=== PATIENT | male | born 1995 | race Caucasian/White ===

== ENCOUNTER 2020-03-03 17:08 | Outpatient (REF) | payer OTHER, SELFPAY | END 2020-03-03 17:09 | disposition home or self-care (01) | LOC: HO.LAB 17:08 | PROVIDERS: Visit Provider Internal Medicine | DX: Z20.828 Contact with and (suspected) exposure to other viral communicable diseases (principal) | CPT/HCPCS: C9803; U0003 ==

== ENCOUNTER 2020-03-22 16:51 | Outpatient (REF) | payer OTHER, SELFPAY | END 2020-03-22 16:52 | disposition home or self-care (01) | LOC: HO.LAB 16:51 | PROVIDERS: PCP Internal Medicine; Visit Provider Internal Medicine | DX: Z20.828 Contact with and (suspected) exposure to other viral communicable diseases (principal) | CPT/HCPCS: 36415; C9803; U0003 ==

== ENCOUNTER 2022-07-16 09:52 | Outpatient (REF) | payer OTHER, SELFPAY ==
[2022-07-16 10:09] LABS: MANUAL DIFF FLAG NO
[2022-07-16 10:50] LABS: Basophils Percent Auto 0.4 % (0-2); Eosinophils Absolute Auto 0.1 X10*3/uL (0.0-0.4); Eosinophils Percent Auto 1.3 % (0-4); Hematocrit 41.3 % (42.0-52.0); Hemoglobin 13.6 g/dl (14.0-18.0); Imm Gran Abs Auto 0.02 X10*3/uL (0.00-0.03); Imm Gran Pct Auto 0.3 % (0.0-0.4); Lymphocytes Absolute Auto 1.6 X10*3/uL (1.2-4.9); Mean Corpuscular HGB Conc 32.9 g/dl (31.0-36.0); Mean Corpuscular Hemoglobin 30.6 pg (27.0-33.0); Mean Corpuscular Volume 92.8 fL (80.0-98.0); Mean Platelet Volume 10.8 fL (9.4-12.4); Monocytes Absolute Auto 0.6 X10*3/uL (0.1-1.2); Monocytes Percent Auto 8.9 % (2-11); Neutrophils Absolute Auto 4.5 x10*3/uL (2.0-8.3); Neutrophils Percent Auto 66.1 % (45-73); Platelet Count 182 X10*3/uL (160-400); Red Blood Count 4.45 X10*6/uL (4.60-5.80); Red Cell Distribution Width 11.6 % (11.0-16.0); White Blood Count 6.7 X10*3/uL (4.8-10.8)
[2022-07-16 11:13] LABS: Alanine Aminotransferase 37 U/L (0-40); Albumin Level 4.3 g/dL (3.5-5.0); Alkaline Phosphatase 54 U/L (39-117); Anion Gap 12 (12-20); Aspartate Amino Transferase 35 U/L (5-37); Bilirubin Total 1.3 mg/dL (0.0-1.0); Blood Urea Nitrogen 17 mg/dL (9-16); Calcium 9.3 mg/dL (8.4-10.2); Carbon Dioxide 26 mmol/L (22-29); Chloride 105 mmol/L (96-108); Cholesterol 145 mg/dL; Estimated Glomerular Filt Rate > 60; Glucose Random 93 mg/dL (60-115); HDL Cholesterol 50 mg/dL; LDL Cholesterol Calculated 81 mg/dl; Potassium 4.2 mmol/L (3.3-5.1); Sodium 139 mmol/L (135-145); Total Protein 6.8 g/dL (6.5-8.0); Triglycerides 70 mg/dL
[2022-07-16 14:15] LABS: CT PCR NOT DETECTED (Not Detect.); NG PCR NOT DETECTED (Not Detect.)
[2022-07-17 04:34] LABS: HIV AB/AG Nonreactive (Nonreactive); HIV Num 1 0.08 S/CO (0.00-0.99)
== END 2022-07-16 09:53 | disposition home or self-care (01) ==
LOC: HO.LAB 09:52
PROVIDERS: PCP Internal Medicine; Visit Provider Internal Medicine
DX: Z00.00 Encounter for general adult medical examination without abnormal findings (principal); Z11.4 Encounter for screening for human immunodeficiency virus [HIV]; M54.50 Low back pain, unspecified; Z20.2 Contact with and (suspected) exposure to infections with a predominantly sexual mode of transmission
CPT/HCPCS: 0353U; 80053; 80061; 85025; 87389

== ENCOUNTER 2024-03-04 16:21 | Emergency (ER) | payer SELFPAY ==
[2024-03-04 16:27] VITALS: BP 116/54; PULSE 78; RESP 18; TEMP 36.4; O2SAT 98; BMI 22.4
--- NOTE | 2024-03-04 17:27 | ED.UPPEXIN ---
HPI - Extremity Injury (Upper) General Chief Complaint: Skin/Abscess/Foreign Body Stated Complaint: Knots/Discomfort on the left elbow Time Seen by Provider: 03/04/24 17:24 Source: patient Mode of arrival: ambulatory Limitations: no limitations History of Present Illness ED Provider: Ariel Redman PA-C HPI narrative: 28 yo male presenting for evaluation of a growing mass on his left elbow. he 1st noticed it 6-7 months ago but it was very small. it has been getting bigger lately. he has pain when he touches it. he is able to fully range the elbow and denies any skin changes, warmth, numbness, tingling or weakness. no injury to the elbow MD complaint: injury to: left and elbow Onset (ago): month(s) Other injuries: none Handedness: right Place: home Severity: mild Severity scale (1-10): 2 Relieving factors: rest Exacerbating factors: other (palpation) Associated symptoms: denies other symptoms Related Data Allergies Allergy/AdvReac Type Severity Reaction Status Date / Time No Known Allergies Allergy Verified 03/04/24 16:30 [No Known Allergies*] Review of Systems Review of Systems: Yes all other systems are reviewed and are negative Physical Exam Vital Signs: Vital Signs: Last Vital Signs Temp 97.6 F 03/04/24 16:27 Pulse 78 03/04/24 16:27 Resp 18 03/04/24 16:27 BP 116/54 L 03/04/24 16:27 Pulse Ox 98 03/04/24 16:27 O2 Del Method Room Air 03/04/24 16:27 BMI result Body Mass Index 22.4 Appearance: Alert. Oriented X3. No acute distress. HEENT: normal inspection CVS: Normal heart rate and rhythm. Pulses normal. Respiratory: No respiratory distress. Skin: Skin warm and dry. Normal skin color. Normal skin turgor. No rashes. Extremities: small, approx 3cm round, soft, fully mobile and minimally tender, superficial mass on the lateral left elbow. FROM of the elbow. no erythema, no tenderness of the condyles. Neuro: Oriented X 3. No motor deficit. No sensory deficit. Medical Decision Making Medical Decision Making [facility] Narrative: 28 yo male presenting for evaluation of a left elbow mass that has been growing and is now tender w/ palpation. exam is c/w a fully mobile and superficial mass, most likely lipoma. does not seem to involve the joint. advised to f/u pcp or derm for elective resection/removal. pt in agreement and will f/u with pcp in 2 weeks as scheduled. stable for d/c home Differential Diagnosis Differential Diagnoses: The differential diagnosis associated with the presentation includes lipoma, olecranon bursitis, gout, OA, soft tissue tumor External Record Review External record reviewed: Prior outpatient labs Tests considered The following testing was considered but not selected: considered xr but low suspicion for bony involvement Prescription Management I considered prescription management with: Pain Medication and Antibiotic Critical Care Time Critical Care Time Critical Care Time: No Discharge Plan Discharge Clinical Impression: Lipoma Qualifiers: Lipoma location: upper extremity Laterality: left Qualified Code(s): D17.22 - Benign lipomatous neoplasm of skin and subcutaneous tissue of left arm Patient Disposition: Home, Self-Care Instructions: Lipoma (ED), Soft Tissue Mass (ED) Additional Instructions: your exam is most consistent with a lipoma, it is a benign growth that is not dangerous if you would like it removed, recommend going to a membership advisor call [facility] [phone] follow up with your doctor If you develop new or worsening symptoms call 911 or come back to the ER for further evaluation. Print Language: Irish
[2024-03-04 17:30] VITALS: BP 116/54; PULSE 78; RESP 18; TEMP 36.4; O2SAT 98
== END 2024-03-04 17:31 | disposition home or self-care (01) ==
LOC: HO.ED 17:28
PROVIDERS: Emergency Provider Emergency Medicine
DX: D17.22 Benign lipomatous neoplasm of skin and subcutaneous tissue of left arm (principal)
CPT/HCPCS: 99282

== ENCOUNTER 2024-05-31 08:52 | Outpatient (AMB) | payer BC, SELFPAY ==
--- NOTE | 2024-05-31 08:54 | MHC.OFFVIS ---
Vital Signs 05/31/24 08:59 Height 6 ft 1 in Weight 166 lb 2 oz BMI 21.9 Intake Visit Reasons: Femoral hernia Intake Note: This patient was referred by Dr. Sherwood for femoral hernia. Pt c/o; right groin, bulge, reports discomfort, no changes in bowel habits. Small Engine Specialist Required: Yes Small Engine Specialist Language: Broomcorn Scraper Services: Small Engine Specialist Offered & Declined Accompanied by: Self / Same As Patient Allergies No Known Allergies [No Known Allergies*] Allergy (Verified 05/31/24 09:00) Medication List - Last Reconciled 05/31/24 by Hany Ryder MD diclofenac sodium 75 mg PO BID HPI HPI Femoral hernia: Details: 29-year-old male referred for a right inguinal hernia. He says he has noticed this reducible mass on the right groin for about 6 months now. He says that sometimes it will be bigger than other days He says this seems to be more protuberant when he is exerting or when he is standing up he would he denies GI complaints. He denies significant pain but this describes a little bit of discomfort. He is in good health. He does admit to smoking marijuana periodically. [facility] Medical History (Updated 05/31/24 @ 09:07 by Hany Ryder MD) Reducible right inguinal hernia Surgical History History of appendectomy Family History Father Diabetes mellitus Mother Mental illness in member of household Social History Alcohol intake: current Alcohol intake frequency: holidays/special occasions only Patient Tobacco Use Status: Never used Tobacco Review of Systems Const Denies chills and Denies fever(s) Card Denies chest pain, Denies dyspnea and Denies dyspnea on exertion Resp Denies cough, Denies dyspnea and Denies dyspnea on exertion GI Denies hematochezia and Denies change in bowel habits Denies hematuria and Denies difficulty urinating Musc Denies back pain and Denies limited range of motion Neuro Denies focal weakness and Denies convulsions Psych Denies depression and Denies mood swings Physical Exam Vital Signs: BMI result Body Mass Index 21.9 Const General: comfortable and no acute distress Orientation/consciousness: patient oriented x3 Neck Neck: Yes no lymphadenopathy Resp Auscultation: clear to auscultation bilaterally Cardio Rhythm: regular rhythm GI Other: Right inguinal hernia, obvious with Valsalva, easily reducible Palpation (GI): Soft to palpation, nontender and no guarding Neuro General: patient oriented x3 Assessment & Plan Assessment & Plan (1) Reducible right inguinal hernia: Code(s): K40.90 - Unilateral inguinal hernia, without obstruction or gangrene, not specified as recurrent Category: Medical Plan: He has a reducible right inguinal hernia. He wants to proceed with repair. I reviewed with him the technique of repair of the right inguinal hernia with possible mesh. I explained the risks including but not limited to bleeding, infections, injury to other organs including bowel, vas deferens, recurrence, postop pain, as well as the benefits and alternatives. I reviewed with him what to expect postoperatively. He has given consent. Coding Level of Care Code New Pt Level 3 (15578) Diagnoses Reducible right inguinal hernia K40.90
[2024-05-31 08:59] VITALS: BMI 21.9
--- OUTSIDE RECORDS SUMMARY | 2024-05-31 09:19 | XMS_ITS | Clinical Summary ---
Author Organization [employer] Address [address] [place] [address] [address] [place] [address] Care Team Providers Care Commercial Carpenter Name Role Phone Unavailable Primary Care Provider Unavailabl e Allergies No known active allergies Medications No known medications Active Problems Problem Noted Date Diagnosed Date Dental abscess 09/16/2022 Dental caries 08/09/2022 Social History Tobacco Use Types Packs/Day Years Used Date Smoking Tobacco: Former Cigarettes 1 1 Passive Smoke Exposure: Past Smokeless Tobacco: Former Tobacco Cessation:Counseling Given: No Alcohol Use Standard Drinks/Week Comments Never 0 (1 standard drink = 0.6 oz pur e alcohol) Sex and Gender Information Value Date Recorded Sex Assigned at Male 01/14/2022 10:31 AM EDT Legal Sex Male 10:31 AM EDT Gender Identity Male 07/16/2022 10:26 AM EDT Sexual Orientation Straight 07/16/2022 10 :26 AM EDT Last Filed Vital Signs Vital Sign Reading Time Taken Comments Blood Pressure 118/70 09/13/2022 11:33 AM EDT Pulse 86 09/13/2022 11:33 AM EDT Temperature - - Respiratory Rate - - Oxygen Saturation - - Inhaled Oxygen Concentration - - Weight - - Height - - Body Mass Index - - Plan of Treatment Health Maintenance Due Date Last Done Comments Depression Screening 1994 HIV Screening 1994 SDOH Screening 1994 Alcohol/Substance Use Screening 2006 Family Planning (PISQ) 2009 Hepatitis C Screening 2012 DTaP/Tdap/Td Vaccines (1 - Tdap) 2013 Hepatitis A Vaccines (1 of 2 - Risk 2-dose series) 2013 Hepatitis B Vaccines (1 of 3 - 19+ 3-dose series) 2013 Dental Oral Exam 02/27/2023 08/27/2022 Dental Prophylaxis 03/14/2023 09/11/2022 Dental X-Ray: Bitewings 08/29/2023 08/27/2022 COVID-19 Vaccine (3 - 2023-2 5 season) 2023 11/30/2020, 11/01/2020 Influenza Vaccine (#1) 2023 Tobacco Screening 01/01/2024 12/31/2022 Dental X-Ray: Full Mouth 08/28/2025 08/27/2022 Zoster Vaccines (1 of 2) 2044 RSV Patients and Patients Aged 60 years or older (1 - 1-dose 75+ series) 2069 HIB Vaccines Aged Out No longer eligi ble based on patient's age to complete this topic HPV Vaccines Aged Out No longer eligi ble based on patient's age to complete this topic IPV Vaccines Aged Out No longer eligi ble based on patient's age to complete this topic Meningococcal Vaccine Aged Out No wanda ying eligible based on patient's age to complete this topic Pneumococcal Vaccine: Pediatrics (0 to 5 Years) and At-Risk Patients (6 to 49) Years) Aged Out No longer eligible b ased on patient's age to complete this topic RSV under 20 months Aged Out No longe r eligible based on patient's age to complete this topic Rotavirus Vaccines Aged Out No longer eligible based on patient's age to complete this topic Procedures Procedure Name Priority Date/Time Associated Diagnosis Comments PROPHYLAXIS - ADULT Routine 09/11/2022 2 :00 PM EDT INTRAORAL - COMPLETE SERIES OF RADIOGRAPHIC IMAGES Routine 08/27/2022 9:30 AM EDT COMPREHENSIVE ORAL EVALUATION - NEW OR ESTABLISHED PATIENT Routine 08/27/2022 9:30 AM EDT from Last 3 Months or Most Recently Relevant to Health Maintenance Insurance DENTAL - HSN PARTIAL (MEDICAID)
== END 2024-05-31 09:04 | disposition home or self-care (01) ==
LOC: HO.HGS 08:53
PROVIDERS: PCP Internal Medicine; Visit Provider Surgery
DX: K40.90 Unilateral inguinal hernia, without obstruction or gangrene, not specified as recurrent (principal)
CPT/HCPCS: 99203

== ENCOUNTER → 2024-05-31 08:52 | Outpatient (BNVA) | payer BC, SELFPAY | PROVIDERS: PCP Internal Medicine; Visit Provider Surgery ==

== ENCOUNTER 2024-06-17 06:40 | Day surgery (SDC) | payer BC, SELFPAY ==
--- NOTE | 2024-06-16 09:43 | HO.ANESPROP2 ---
Documented by User: Steph Forbes NP 06/16/24 09:43 HPI - Anesthesia Eval Consult details Narrative: 29yo M for Right Hernia Inguinal Reducible with mesh PMFSH Active Problems Active Problems: All Active Problems Reducible right inguinal hernia (Acute) Past Medical History Medical History Reducible right inguinal hernia Family History Family History Father Diabetes mellitus Mother Mental illness in member of household Surgical History Surgical History History of appendectomy Social History Social History Are you a primary healthcare consultant to a significant other at home: No Do you presently have visiting nurse or other home services: No Alcohol intake: current Alcohol intake frequency: a few times a month Patient Tobacco Use Status: Never used Tobacco Use of substances other than those prescribed or required for medical reasons: Yes Substance Use Frequency: Daily Have you been hit, kicked, punched, or otherwise hurt by someone within the past year? If so, by whom?: No Are you DNR?: No Advance Directives: No Advance Directives Information Provided: Yes Poor oral hygiene: No Meds Allergies Allergy/AdvReac Type Severity Reaction Status Date / Time No Known Allergies Allergy Verified 06/17/24 07:34 [No Known Allergies*] Home Medications ?Medication ?Instructions ?Recorded ?Confirmed ?Last Taken ?Type diclofenac sodium 75 mg 75 mg PO BID 05/21/24 Unknown History tablet,delayed release Assessment and Plan Assessment Anesthesia Assessment: Chart Reviewed Documented by User: Ami Valerio MD 06/17/24 08:37 PMFSH Active Problems Active Problems: All Active Problems Reducible right inguinal hernia (Acute) Daily marijuana. Last used last night Past Medical History Medical History Reducible right inguinal hernia Family History Family History Father Diabetes mellitus Mother Mental illness in member of household Family history of problems with anesthesia: No Surgical History Surgical History History of appendectomy History of Problems with Anesthesia: No Social History Social History Are you a primary healthcare consultant to a significant other at home: No Do you presently have visiting nurse or other home services: No Alcohol intake: current Alcohol intake frequency: a few times a month Patient Tobacco Use Status: Never used Tobacco Use of substances other than those prescribed or required for medical reasons: Yes Substance Use Frequency: Daily Have you been hit, kicked, punched, or otherwise hurt by someone within the past year? If so, by whom?: No Are you DNR?: No Advance Directives: No Advance Directives Information Provided: Yes Poor oral hygiene: No Meds Allergies Allergy/AdvReac Type Severity Reaction Status Date / Time No Known Allergies Allergy Verified 06/17/24 07:34 [No Known Allergies*] Home Medications ?Medication ?Instructions ?Recorded ?Confirmed ?Last Taken ?Type diclofenac sodium 75 mg 75 mg PO BID 05/21/24 Unknown History tablet,delayed release Exam Height,Weight and Vital Signs: Height 6 ft 1 in Weight 74 kg Vital Signs Temp Pulse Resp BP Pulse Ox O2 Del Method 06/17/24 07:36 98.0 F 71 14 125/78 98 Room Air Airway Mallampati Class: II (Small mouth) TM Dist: >3cm Neck ROM: Full Loose/Missing/Broken Teeth: Yes (Missing some teeth. Denies broken or loose teeth) Heart: RRR Lungs: CTAB Assessment and Plan Assessment Anesthesia Assessment: Anesthesia Plan Discussed and Chart Reviewed Final Anesthetic Review Family History of Problems with Anesthesia: No History of Problems with Anesthesia: No NPO: Yes ASA Class: II Final Preanesthetic Review: No Changes in Pt Med Stat, Meds/Allgs Chart Reviewed, Consent Obtained/Reviewed and Anes Risks/Benef Reviewed Patient Risk: Intermediate Procedure Risk: Low Assessment/Block/Sedation in SS: Assess/Block/Sedation-SS Anesthetic Plan Anesthetic Plan: GA Disposition: Standard PACU
[2024-06-17] VITALS (8 sets, daily range): BP systolic 95–125; BP diastolic 54–89; PULSE 57–76; RESP 12–16; TEMP 36.1–36.7; O2SAT 96–98; BMI 21.5
--- NOTE | 2024-06-17 07:26 | MHC.SHP ---
Pre-Procedural Eval Section A - 24 Hr Update-Section A only Date of Service: 06/17/24 The patient is an INPATIENT: No Changes since office visit: No Cold of Flu in the past 2 weeks, No New Medical Problems, No Changes in Medication and No Patient answered all questions The patient has been examined within 24 hours of the surgical procedure. The History & Physical has been completed within 30 days and I have reviewed it.: Yes Section B - Complete if H&P > 30 days Chief Complaint: Unilateral inguinal hernia, without obstruction or Allergies: Allergies Allergy/AdvReac Type Severity Reaction Status Date / Time No Known Allergies Allergy Verified 05/31/24 09:00 [No Known Allergies*] Plan I have reviewed the history and physical and performed a pertinent physical examination on my patient. No changes have occurred unless specified. Time Spent With Patient Time: Total time managing care of this patient today ____ minutes.
[2024-06-17] MEDS: Lactated Ringers 1,000 ML 100 ML IVCONT (07:45)
[2024-06-17] MEDS: ceFAZolin Sodium/Dextrose,Iso 2 GM/50 ML PIGGYBACK IV (08:07)
--- NOTE | 2024-06-17 08:58 | W.PM.OPN ---
Operative Note Operative Note Date of Service: 06/17/24 Narrative: Preop diagnosis: Right inguinal hernia, reducible Postop diagnosis: right inguinal hernia, reducible, indirect Procedure: Repair of right inguinal hernia with mesh Surgeon: Hany Ryder MD Tig Welder: Loc Reynoso MS3 The patient is a 29-year-old male with a reducible right inguinal hernia. He understood the technique of repair with mesh. He was aware of the risks, benefits, and alternatives He was brought to the operating room. He was placed supine under general anesthesia via laryngeal mask airway. The right groin was prepped and draped in usual sterile fashion. A surgical time-out was done. The patient received cefazolin 2 g IV preoperatively I infiltrated the planned line of incision with lidocaine 1%. I made a short incision on the skin along an imaginary line from the anterior superior iliac spine to the pubic ramus using blade 15. This carried down with electrocautery through the full-thickness of the skin and subcutaneous fat down to the external oblique aponeurosis. I bluntly dissected the aponeurosis to define the external ring. I opened up the external oblique aponeurosis by incising this over the canal. I applied hemostasis on the divided edges. I then did blunt dissection underneath the Azria this to create a pocket for the mesh. I then proceeded to do blunt dissection of the spermatic cord and its contents until was able to pass a [place] drain around this. The Zaria drain was used for retraction. The vas deferens and the accompanying vessels were identified and protected. I identified the hernia sac on the anteromedial aspect. I gently this from the rest of the cord contents until I was able to completely reduce this through the internal ring. I reinforced the internal ring with a small-sized Prolene plug. The plug was secured to the shelving edge of the inguinal meant laterally, the internal oblique superiorly and medially using the inner leaves of the mesh I reinforced the floor of the canal with a keyhole mesh. The tails of the mesh were passed around the cord at the level of the internal ring and were secured together Prolene 2 sutures. The mesh was then secured to the shelving edge of the inguinal meant laterally, the internal oblique medially as well as the pubic ramus inferomedially. We irrigated. The he was drain was removed. We observed for hemostasis. Once hemostasis was confirmed, I closed the external oblique aponeurosis with a running Polysorb 2-0 stitch to re-create the external ring. The subcutaneous layer was reapposed with Polysorb 3-0 simple interrupted sutures. Skin closure was achieved with Polysorb 4-0 subcuticular running stitch. The area was then infiltrated with Marcaine 0.5% for postop analgesia. Dressings were applied. The procedure was completed The patient tolerated the procedure well. There were no immediate complications. Initial I final counts of sponges and instruments were correct. Estimated blood loss was less than 10 cc. The patient was extubated without difficulty and transferred to the recovery room with stable vital signs.
[2024-06-17] MEDS: oxyCODONE HCl Immed Release 5 MG TABLET PO (09:15)
[2024-06-17] MEDS: fentaNYL citrate/PF 100 MCG/2 ML VIAL 25 MCG IVPUSH ×2 (09:15→09:25)
== END 2024-06-17 10:16 | disposition home or self-care (01) ==
PROVIDERS: PCP Internal Medicine; Visit Provider Surgery
PROC: (CPT 49505; principal; 2024-06-17 08:10)
DX: K40.90 Unilateral inguinal hernia, without obstruction or gangrene, not specified as recurrent (principal); Z90.49 Acquired absence of other specified parts of digestive tract; Z79.899 Other long term (current) drug therapy
CPT/HCPCS: 49505; C1781; J0690; J1100; J1885; J2003; J2250; J2405; J2704; J2795; J3010

== ENCOUNTER → 2024-06-17 06:40 | Outpatient (BNV) | payer BC, SELFPAY | PROVIDERS: PCP Internal Medicine; Visit Provider Surgery | DX: K40.90 Unilateral inguinal hernia, without obstruction or gangrene, not specified as recurrent (principal) | CPT/HCPCS: 49505 ==

== ENCOUNTER 2024-06-30 11:23 | Outpatient (AMB) | payer BC, SELFPAY ==
--- NOTE | 2024-06-30 11:23 | MHC.OFFVIS ---
Intake Visit Reasons: S/P RIH w/mesh Intake Note: Patient is seen in office for post op assessment post right inguinal hernia repair. 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 He tolerated the procedure well. He currently denies significant complaints. [facility] Medical History Reducible right inguinal hernia Surgical History H/O right inguinal hernia repair (06/17/24) History of appendectomy Family History Father Diabetes mellitus Mother Mental illness in member of household Social History Are you a primary child daycare worker to a significant other at home: No Do you presently have visiting nurse or other home services: No Alcohol intake: current Alcohol intake frequency: a few times a month Patient Tobacco Use Status: Never used Tobacco Review of Systems Const Denies chills and Denies fever(s) Card Denies chest pain, Denies dyspnea and Denies dyspnea on exertion Resp Denies cough, Denies dyspnea and Denies dyspnea on exertion GI Denies hematochezia and Denies change in bowel habits Denies hematuria and Denies difficulty urinating Musc Denies back pain and Denies limited range of motion Neuro Denies focal weakness and Denies convulsions Psych Denies depression and Denies mood swings Physical Exam Const General: comfortable and no acute distress GI Other: Repair site on the right groin is well healed, not infected, repair site intact Inspection: Yes G-tube present Palpation (GI): Soft to palpation, not firm and nontender Assessment & Plan Assessment & Plan (1) Reducible right inguinal hernia: Code(s): K40.90 - Unilateral inguinal hernia, without obstruction or gangrene, not specified as recurrent Category: Medical Plan: Status post repair with mesh. He is doing very well. The repair site is intact. I advised him to avoid lifting anything more than 20 lb for at least 3 more weeks. He can follow up on a p.r.n. basis. Coding Level of Care Code Est Pt Level 2 (55347) Diagnoses Reducible right inguinal hernia K40.90
[2024-06-30 11:34] VITALS: BP 121/70; PULSE 68; BMI 22.2
--- OUTSIDE RECORDS SUMMARY | 2024-06-30 13:49 | XMS_ITS | Clinical Summary ---
Author Organization [employer] Address [address] [place] [address] [address] [place] [address] Care Team Providers Care Source Water Protection Specialist Name Role Phone Unavailable Primary Care Provider [...]
== END 2024-06-30 11:49 | disposition home or self-care (01) ==
LOC: HO.HGS 11:23
PROVIDERS: PCP Internal Medicine; Visit Provider Surgery
DX: K40.90 Unilateral inguinal hernia, without obstruction or gangrene, not specified as recurrent (principal)
CPT/HCPCS: 99024